=== PATIENT | female | born 1960 | race Caucasian/White ===

== ENCOUNTER → 2019-10-09 13:46 | Outpatient (CLI) | payer BC, SELFPAY ==
--- NOTE | ~2019-10-09 | MR_ITS ---
EXAMINATION: MR brain/brain stem wo/w con DATE: 10/09/2019 15:12 INDICATION: Multiple sclerosis. TECHNIQUE: Magnetic resonance imaging (MRI) of the brain and brainstem was performed without and with 10 mL MultiHance intravenous contrast. Sequences included sagittal and axial T1-weighted FLAIR, axia l T1-weighted FSE, axial diffusion-weighted FS EPI, sagittal T2-weighted FLAIR, axial T2*-weighted GR E, axial T2-weighted FLAIR Propeller, and axial T2-weighted Propeller. Postcontrast sequences include d axial, coronal, and sagittal T1-weighted FSE. Apparent diffusion coefficient (ADC) maps were create d. COMPARISON: Brain MRI 12/18/2017 FINDINGS: There are approximately 20 total lesions of increased T2-weighted signal intensity in the b rain. Of these lesions, multiple are periventricular, multiple are juxtacortical, and none are infrat entorial. None of the lesions enhance. There is no acute ischemic infarct or intracranial hemorrhage. The ventricles are normal in size. The paranasal sinuses are clear. There are likely changes of left ocular lens replacement surgery. The mastoid air cells are normal. IMPRESSION: 1. Unchanged number and distribution of cerebral white matter lesions, likely a combination of multip le sclerosis and some component of chronic small vessel ischemic disease. Reviewed, dictated and finalized at location A. IMPRESSION: 1. Unchanged number and distribution of cerebral white matter lesions, likely a combination of multiple sclerosis and some component of chronic small vessel i schemic disease.
--- NOTE | ~2019-10-09 | MR_ITS ---
EXAMINATION: MR cervical spine wo/w con DATE: 10/09/2019 15:01 INDICATION: Multiple sclerosis. TECHNIQUE: Magnetic resonance imaging (MRI) of the cervical spine was performed without and with 10 m L MultiHance intravenous contrast. Sequences included sagittal and axial T2-weighted FSE, sagittal ST IR FSE, and sagittal and axial T1-weighted FSE. Postcontrast sequences included sagittal and axial T1 -weighted FS FSE. COMPARISON: Cervical spine MRI 12/18/2017 FINDINGS: There is 2 mm retrolisthesis of C4 on C5 and C5 on C6. Vertebral body heights are normal. T here is moderately decreased disc height at C4-C5 and C5-C6. There are multiple ill-defined lesions o f increased T2-weighted signal intensity in the spinal cord from C2 to C7. None of the lesions enhanc e. The following disc levels are specifically discussed: C2-C3: The disc does not extend beyond the endplate margin. There is no uncovertebral joint osteoarth ritis. There is mild bilateral facet joint osteoarthritis. There is no neural foraminal stenosis. The re is no central canal stenosis. C3-C4: The disc does not extend beyond the endplate margin. There is mild bilateral uncovertebral katelyn nt osteoarthritis. There is severe bilateral facet joint osteoarthritis. There is no neural foraminal stenosis. There is no central canal stenosis. C4-C5: The disc is bulging. There is moderate right and severe left uncovertebral joint osteoarthriti s. There is moderate bilateral facet joint osteoarthritis. There is mild right and moderate left neur al foraminal stenosis. There is mild central canal stenosis. C5-C6: The disc is bulging. There is moderate right and severe left uncovertebral joint osteoarthriti s. There is moderate bilateral facet joint osteoarthritis. There is mild bilateral neural foraminal s tenosis. There is mild central canal stenosis. C6-C7: The disc does not extend beyond the endplate margin. There is no uncovertebral joint osteoarth ritis. There is mild right and severe left facet joint osteoarthritis. There is mild left neural fora indra stenosis. There is no central canal stenosis. C7-T1: The disc does not extend beyond the endplate margin. There is no uncovertebral joint osteoarth ritis. There is severe right and moderate left facet joint osteoarthritis. There is mild right neural foraminal stenosis. There is no central canal stenosis. IMPRESSION: 1. Unchanged distribution of lesions in the spinal cord, consistent with multiple sclerosis. 2. Stable moderate cervical spondylosis. Reviewed, dictated and finalized at location A. IMPRESSION: 1. Unchanged distribution of lesions in the spinal cord, consistent with multip le sclerosis. 2. Stable moderate cervical spondylosis.
[2019-10-09 14:11] LABS: Estimated Glomerular Filt Rate > 60
== END ==
PROVIDERS: PCP Student in an Organized Health Care Education/Training Program
DX: G35 Multiple sclerosis (principal); M47.892 Other spondylosis, cervical region
CPT/HCPCS: 36415; 70553; 72156; A9577

== ENCOUNTER → 2020-08-03 11:14 | Outpatient (CLI) | payer BC, SELFPAY ==
--- NOTE | ~2020-08-03 | MM_ITS ---
EXAMINATION: MM screening justin BI w teresa HISTORY: Screening mammogram TECHNIQUE: Craniocaudal and mediolateral oblique 3-D tomosynthesis images were obtained and synthetic 2-D images were generated. CAD analysis was submitted and interpreted. COMPARISON: 07/13/2019, 07/03/2018, bilateral digital screening mammogram examinations BREAST PARENCHYMAL COMPOSITION: There are scattered areas of fibroglandular density. FINDINGS: Scattered bilateral benign calcifications are noted. There is no evidence of suspicious mas s, calcification, or architectural distortion to suggest malignancy in either breast. There has been no suspicious interval change. IMPRESSION: 1. No mammographic evidence of malignancy. 2. Recommend routine screening mammography in one year. BI-RADS Category 1: Negative Reviewed, dictated and finalized at location A. BUILDER
== END ==
PROVIDERS: PCP Student in an Organized Health Care Education/Training Program; Visit Provider Obstetrics & Gynecology
DX: Z12.31 Encounter for screening mammogram for malignant neoplasm of breast (principal)
CPT/HCPCS: 77063; 77067

== ENCOUNTER → 2021-09-13 10:28 | Outpatient (CLI) | payer BC, SELFPAY ==
--- NOTE | ~2021-09-13 | MM_ITS ---
EXAMINATION: MM screening justin BI w teresa HISTORY: Screening mammogram, family history of breast cancer in her mother. TECHNIQUE: Craniocaudal and mediolateral oblique 3-D tomosynthesis images were obtained and synthetic 2-D images were generated. CAD analysis was submitted and interpreted. COMPARISON: 08/03/2020, 07/13/2019, 06/16/2018 BREAST PARENCHYMAL COMPOSITION: The breasts are almost entirely fatty. FINDINGS: Scattered benign-appearing calcifications are present. There is no evidence of suspicious m ass, calcification, or architectural distortion to suggest malignancy in either breast. There has bee n no suspicious interval change. IMPRESSION: 1. No mammographic evidence of malignancy. 2. Recommend routine screening mammography in one year. BI-RADS Category 2: Benign finding(s). Reviewed, dictated and finalized at location A. NIGHT STOCKER
== END ==
PROVIDERS: PCP Obstetrics & Gynecology; Visit Provider Obstetrics & Gynecology
DX: Z12.31 Encounter for screening mammogram for malignant neoplasm of breast (principal)
CPT/HCPCS: 77063; 77067

== ENCOUNTER → 2021-10-25 13:45 | Outpatient (CLI) | payer BC, SELFPAY ==
--- NOTE | ~2021-10-25 | MR_ITS ---
EXAMINATION: MR brain/brain stem wo/w con DATE: 10/25/2021 15:07 INDICATION: Multiple sclerosis. TECHNIQUE: Magnetic resonance imaging (MRI) of the brain and brainstem was performed without and with 10 mL MultiHance intravenous contrast. Sequences included sagittal and axial T1-weighted FLAIR, axia l T1-weighted FSE, axial diffusion-weighted FS EPI, sagittal T2-weighted FLAIR, axial T2*-weighted GR E, axial T2-weighted FLAIR Propeller, and axial T2-weighted Propeller. Postcontrast sequences include d axial, coronal, and sagittal T1-weighted FSE. Apparent diffusion coefficient (ADC) maps were create d. COMPARISON: Brain MRI 10/09/2019 FINDINGS: There are approximately 20 lesions of increased T2-weighted signal intensity in the brain. Of these lesions, multiple are periventricular, multiple are juxtacortical, and one involves the righ t posterior midbrain. None of the lesions enhance. There is no acute ischemic infarct or intracranial hemorrhage. The ventricles are normal in size. There are likely changes of left ocular lens replacem ent surgery. The mastoid air cells are normal. The paranasal sinuses are clear. IMPRESSION: 1. Unchanged number and distribution of brain lesions, likely a combination of multiple sclerosis and some component of chronic small vessel ischemic disease. Reviewed, dictated and finalized at location A.
--- NOTE | ~2021-10-25 | MR_ITS ---
EXAMINATION: MR cervical spine wo/w con DATE: 10/25/2021 15:10 INDICATION: Multiple sclerosis. TECHNIQUE: Magnetic resonance imaging (MRI) of the cervical spine was performed without and with 10 m L MultiHance intravenous contrast. Sequences included sagittal and axial T2-weighted FSE, sagittal T2 -weighted FS FSE, and sagittal and axial T1-weighted FSE. Postcontrast sequences included sagittal an d axial T1-weighted FS FSE. COMPARISON: Cervical spine MRI 10/09/2019 FINDINGS: There is 2 mm anterolisthesis of C3 on C4 and 2 mm retrolisthesis of C4 on C5 and C5 on C6. Vertebral body heights are normal. There is severely decreased disc height at C4-C5 and C5-C6. There are multiple ill-defined lesions of increased T2-weighted signal intensity in the cervical spinal co rd. None of the lesions enhance. The following disc levels are specifically discussed: C2-C3: There is a central protrusion. There is no uncovertebral joint osteoarthritis. There is severe right and mild left facet joint osteoarthritis. There is mild right neural foraminal stenosis. There is no central canal stenosis. C3-C4: The disc does not extend beyond the endplate margin. There is mild bilateral uncovertebral katelyn nt osteoarthritis. There is severe bilateral facet joint osteoarthritis. There is mild bilateral neur al foraminal stenosis. There is no central canal stenosis. C4-C5: The disc is bulging. There is severe bilateral uncovertebral joint osteoarthritis. There is mi ld right and severe left facet joint osteoarthritis. There is mild right and moderate left neural for aminal stenosis. There is mild central canal stenosis. C5-C6: The disc is bulging. There is severe bilateral uncovertebral joint osteoarthritis. There is mi ld bilateral facet joint osteoarthritis. There is mild bilateral neural foraminal stenosis. There is mild central canal stenosis. C6-C7: The disc does not extend beyond the endplate margin. There is no uncovertebral joint osteoarth ritis. There is severe left facet joint osteoarthritis. There is mild left neural foraminal stenosis. There is no central canal stenosis. C7-T1: The disc does not extend beyond the endplate margin. There is no uncovertebral joint osteoarth ritis. There is severe right and moderate left facet joint osteoarthritis. There is mild right neural foraminal stenosis. There is no central canal stenosis. IMPRESSION: 1. Stable lesions in the cervical spinal cord, consistent with multiple sclerosis. 2. Stable severe cervical spondylosis. Reviewed, dictated and finalized at location A. IMPRESSION: 1. Stable lesions in the cervical spinal cord, consistent with multiple scleros is. 2. Stable severe cervical spondylosis.
[2021-10-25 14:14] LABS: Estimated Glomerular Filt Rate > 60
== END ==
PROVIDERS: PCP Student in an Organized Health Care Education/Training Program; Visit Provider Psychiatry & Neurology Neurology
DX: G35 Multiple sclerosis (principal); M47.813 Spondylosis without myelopathy or radiculopathy, cervicothoracic region; M48.03 Spinal stenosis, cervicothoracic region
CPT/HCPCS: 70553; 72156; A9577

== ENCOUNTER → 2022-03-16 09:11 | Outpatient (CLI) | payer BC, SELFPAY ==
--- NOTE | ~2022-03-16 | CT_ITS ---
EXAMINATION: CT abdomen pelvis wo con DATE: 03/16/2022 09:37 INDICATION: Gluteal calcifications TECHNIQUE: Computed tomography (CT) of the abdomen and pelvis was performed without intravenous contr ast. Automated exposure control and iterative reconstruction technique were employed. Exam dose: 311 .58 mGy-cm total exam DLP. COMPARISON: 06/12/2019 right upper quadrant abdominal ultrasound examination FINDINGS: The lung bases are clear. Normal heart size. No pericardial or pleural effusion. The liver, gallbladder, bile ducts, spleen, pancreas, pancreatic duct, and adrenal glands and kidneys appear unremarkable on this limited noncontrast examination. Normal caliber of the abdominal aorta. No intraperitoneal or retroperitoneal or pelvic mass lesion or adenopathy or ascites. Pelvic structures and urinary bladder are unremarkable. Normal caliber of the abdominal aorta. No intraperitoneal or retroperitoneal or pelvic mass lesion or adenopathy or ascites. Normal appendix. Diverticulosis of the colon; no bowel obstruction, bowel wall thickening, pneumatosi s or intraperitoneal free air. Small fat-containing umbilical hernia. There are some calcifications within the subcutaneous adipose tissues along the proximal anterolatera l finalized bilaterally. No buttock calcifications or gluteal calcifications are noted. Severe degenerative disc disease at L5-S1. No suspicious osteolytic or osteoblastic lesions. IMPRESSION: Nonspecific subcutaneous fat calcifications at the proximal anterolateral 5 6 Diverticulosis of the colon; no evidence of diverticulitis Reviewed, dictated and finalized at Location A. Reviewed, dictated and finalized at location B. IMPRESSION: Nonspecific subcutaneous fat calcifications at the proximal bin lateral 5 6 Diverticulosis of the colon; no evidence of diverticulitis
== END ==
PROVIDERS: PCP Student in an Organized Health Care Education/Training Program; Visit Provider Student in an Organized Health Care Education/Training Program
DX: M61.9 Calcification and ossification of muscle, unspecified (principal); K57.30 Diverticulosis of large intestine without perforation or abscess without bleeding
CPT/HCPCS: 74176

== ENCOUNTER → 2022-09-24 12:36 | Outpatient (CLI) | payer BC, SELFPAY ==
--- NOTE | ~2022-09-24 | MM_ITS ---
EXAMINATION: MM screening justin BI w teresa HISTORY: Screening mammogram TECHNIQUE: Craniocaudal and mediolateral oblique 3-D tomosynthesis images were obtained and synthetic 2-D images were generated. CAD analysis was submitted and interpreted. COMPARISON: 09/13/2021, 08/03/2020, 07/13/2019 bilateral screening mammogram examinations BREAST PARENCHYMAL COMPOSITION: There are scattered areas of fibroglandular density. FINDINGS: There is no evidence of suspicious mass, calcification, or architectural distortion to sugg est malignancy in either breast. There has been no suspicious interval change. IMPRESSION: 1. No mammographic evidence of malignancy. 2. Recommend routine screening mammography in one year. BI-RADS Category 1: Negative Reviewed, dictated and finalized at location A.
== END ==
PROVIDERS: PCP Student in an Organized Health Care Education/Training Program; Visit Provider Obstetrics & Gynecology
DX: Z12.31 Encounter for screening mammogram for malignant neoplasm of breast (principal)
CPT/HCPCS: 77063; 77067

== ENCOUNTER 2023-10-28 08:31 | Outpatient (CLI) | payer BC, SELFPAY ==
--- NOTE | ~2023-10-28 | MR_ITS ---
EXAMINATION: MR cervical spine wo con DATE: 10/28/2023 09:20 INDICATION: Multiple sclerosis TECHNIQUE: Magnetic resonance imaging (MRI) of the cervical spine was performed without intravenous c ontrast. Sequences included sagittal T2-weighted FSE, sagittal T2-weighted FS FSE, sagittal T1-weight ed FSE, axial MERGE and axial T2-weighted FSE. COMPARISON: 10/25/2021 FINDINGS: Unchanged 2 mm anterolisthesis C3 on C4 and 2 mm retrolisthesis of C4-C5 and C5 on C6. Vertebral bod y heights are normal. Bone marrow signal intensity is normal. Severe disc height loss at C4-C5 and C 5-C6. Mild disc height loss at C3-C4. Again seen but less conspicuous are few scattered ill-defined T 2 hyperintense cord lesions at this includes at the left anterior and right posterior aspects at the level of C3-C4, anteriorly on the left from C4 through C5 C6 and on the left posterior aspect at C6-C 7. No new cord lesions identified. The following disc levels are specifically discussed: C2-C3: Small central disc protrusion. There is no uncovertebral joint osteoarthritis. There is mild l eft and severe right facet joint osteoarthritis. There is mild right neural foraminal stenosis. There is no central canal stenosis. C3-C4: The disc does not extend beyond the more posterior C4 endplate margin. There is mild bilateral uncovertebral joint osteoarthritis. There is severe bilateral facet joint osteoarthritis. There is m ild bilateral neural foraminal stenosis. There is no central canal stenosis. C4-C5: Disc is bulging. There is severe bilateral uncovertebral joint osteoarthritis. There is severe left and mild right facet joint osteoarthritis. There is moderate left and mild right neural foramin al stenosis. There is mild central canal stenosis. C5-C6: Disc is bulging. There is severe bilateral uncovertebral joint osteoarthritis. There is mild b ilateral facet joint osteoarthritis. There is mild right and mild to moderate left neural foraminal s tenosis. There is mild central canal stenosis. C6-C7: The disc does not extend beyond the endplate margin. There is no uncovertebral joint osteoarth ritis. There is mild right and severe left facet joint osteoarthritis. There is mild left neural fora indra stenosis. There is no central canal stenosis. C7-T1: The disc does not extend beyond the endplate margin. There is no uncovertebral joint osteoarth ritis. There is moderate left and severe right facet joint osteoarthritis. There is mild right neural foraminal stenosis. There is no central canal stenosis. IMPRESSION: 1. Several T2 hyperintense lesions in the mid cervical cord unchanged extent but with slightly less c onspicuous increased T2 signal consistent with multiple sclerosis. No new cord lesions identified. 2. No significant change in severe cervical spondylosis. Reviewed, dictated and finalized at location A. IMPRESSION: 1. Several T2 hyperintense lesions in the mid cervical cord unchanged extent bu t with slightly less conspicuous increased T2 signal consistent with multiple s clerosis. No new cord lesions identified. 2. No significant change in severe cervical spondylosis.
--- NOTE | ~2023-10-28 | MR_ITS ---
EXAMINATION: MR brain/brain stem wo con DATE: 10/28/2023 09:10 INDICATION: Multiple sclerosis TECHNIQUE: Magnetic resonance imaging (MRI) of the brain and brainstem was performed without intraven ous contrast. Sequences included sagittal and axial T1-weighted SE, axial diffusion-weighted FS SE, a xial T2*-weighted GRE, axial T2-weighted FLAIR, and axial T2-weighted FSE. Apparent diffusion coeffic ient (ADC) maps were created. COMPARISON: Brain MR dated 10/25/2021 FINDINGS: No interval change in approximately 20 supratentorially T2 hyperintense lesions relatively with relat ively equivalent distribution on both the left and right as well as between periventricular and juxta cortical lesions. No new lesions identified. No evident infratentorial or mid brain lesions. There ar e no areas of restricted diffusion to suggest acute infarction. No intracranial hemorrhage or abnorma l intracranial mass lesion. There are no intraparenchymal signal abnormalities seen on the other puls e sequences. The ventricles are symmetric and normal in size. There are no abnormal extra-axial fluid collections. Flow voids are seen in the cerebral arteries on the T2-weighted sequences consistent wi th their expected patency. Changes of left intraocular lens replacement. Visualized orbits and soft tissues are unremarkable. IMPRESSION: 1. No interval change in number or distribution of multiple small T2 hyperintense supratentorial brai n lesions consistent with multiple sclerosis and/or chronic small vessel ischemic disease. Reviewed, dictated and finalized at location A. IMPRESSION: 1. No interval change in number or distribution of multiple small T2 hyperinten se supratentorial brain lesions consistent with multiple sclerosis and/or chron ic small vessel ischemic disease.
== END 2023-10-28 08:32 ==
LOC: MICIMG 08:32
PROVIDERS: PCP Student in an Organized Health Care Education/Training Program; Visit Provider Psychiatry & Neurology Neurology
DX: G35 Multiple sclerosis (principal)
CPT/HCPCS: 70551; 72141

== ENCOUNTER 2024-02-17 11:06 | Outpatient (CLI) | payer BC, SELFPAY ==
--- NOTE | ~2024-02-17 | MM_ITS ---
EXAMINATION: MM screening justin BI w teresa HISTORY: Screening TECHNIQUE: Craniocaudal and mediolateral oblique 3-D tomosynthesis images were obtained and synthetic 2-D images were generated. CAD analysis was submitted and interpreted. COMPARISON: Comparison to multiple prior studies sequentially, with oldest reviewed study dated 04/14. BREAST PARENCHYMAL COMPOSITION: Not dense: There are scattered areas of fibroglandular density. FINDINGS: There is no evidence of suspicious mass, calcification, or architectural distortion to sugg est malignancy in either breast. There has been no suspicious interval change. IMPRESSION: 1. No mammographic evidence of malignancy. 2. Recommend routine screening mammography in one year. BI-RADS Category 1: Negative Reviewed, dictated and finalized at location B.
== END 2024-02-17 11:07 ==
LOC: MICIMG 11:07
PROVIDERS: PCP Student in an Organized Health Care Education/Training Program; Visit Provider Obstetrics & Gynecology
DX: Z12.31 Encounter for screening mammogram for malignant neoplasm of breast (principal)
CPT/HCPCS: 77063; 77067

== ENCOUNTER 2025-05-03 07:51 | Outpatient (CLI) | payer BC, SELFPAY ==
--- NOTE | ~2025-05-03 | DEXA_ITS ---
Bone Density Report Name: BERNIE WEBB Age: 64 Sex: Female Ethnicity: White Date of : 1960 Indication: postmenopausal; screening for osteoporosis; parental hip fracture; hysterectomy; Referring Provider: Marcellus, Joaquim Study: Bone densitometry was performed. Exam Date: May 03, 2025 Accession number: [id number] Bone Density: Region BMD T-score Z-score Classification AP Spine(L1-L4) 0.960 -0.8 0.9 Normal Femoral Neck (Left) 0.753 -0.9 0.6 Normal Total Hip (Left) 0.861 -0.7 0.5 Normal Femoral Neck (Right) 0.770 -0.7 0.7 Normal Total Hip (Right) 0.879 -0.5 0.6 Normal Total Hip Mean 0.870 -0.6 0.6 Normal World Health Organization criteria for BMD impression classify patients as: Normal (T-score at or above -1.0), Osteopenia (T-score between -1.0 and -2.5), or Osteoporosis (T-score at or below -2.5). 10-year Fracture Risk: FRAX not reported because: All T-scores for Spine Total, Hip Total, Femoral Neck at or above -1.0 Clinical Information Provided by Patient: Parent has had a hip fracture Has used the following medications: Vitamin D, Calcium Has the following medical conditions: Hysterectomy Patient maximum height was 62 Menopause Age: 53 No regular weight bearing exercise Drinks caffeinated beverages Onset of menses at age 11 Number of children 1 Impression: The patient has normal bone mass. The patient has risk factors, including: parental hip fracture. Discussion: BONE DENSITY IS ABOVE THE MINIMUM DESIRABLE LEVEL AT ALL SKELETAL SITES TESTED. This patient?s bone mineral density is above the minimum desirable level (T-score -1.0 or better) at all sites measured. The patient should follow a healthful lifestyle (good nutrition with adequate calcium and vitamin D, and appropriate weight-bearing exercise). Follow-Up: Consider repeating this study in 5 years or sooner if there is some new clinical indication. Reported by: KARLIE on 05/03/2025 8:12:00 AM. Reviewed, dictated and finalized at location A.
== END 2025-05-03 07:52 | disposition home or self-care (01) ==
LOC: MICIMG 07:51
PROVIDERS: PCP Student in an Organized Health Care Education/Training Program; Visit Provider Student in an Organized Health Care Education/Training Program
DX: Z78.0 Asymptomatic menopausal state (principal)
CPT/HCPCS: 77080

== ENCOUNTER 2025-05-26 09:15 | Outpatient (CLI) | payer BC, SELFPAY ==
--- NOTE | ~2025-05-26 | MM_ITS ---
EXAMINATION: MM screening justin BI w teresa HISTORY: Screening TECHNIQUE: Craniocaudal and mediolateral oblique 3-D tomosynthesis images were obtained and synthetic 2-D images were generated. CAD analysis was submitted and interpreted. COMPARISON: Comparison to multiple prior studies sequentially, with oldest reviewed study dated 06/16/2018. BREAST PARENCHYMAL COMPOSITION: Not Dense: The breasts are almost entirely fatty. FINDINGS: There is no evidence of suspicious mass, calcification, or architectural distortion to suggest malignancy in either breast. There has been no suspicious interval change. IMPRESSION: 1. No mammographic evidence of malignancy. 2. Recommend routine screening mammography in one year. BI-RADS Category 1: Negative Reviewed, dictated and finalized at location B. OR JAVA UI DEVELOPER
== END 2025-05-26 09:16 | disposition home or self-care (01) ==
LOC: MICIMG 09:16
PROVIDERS: PCP Student in an Organized Health Care Education/Training Program; Visit Provider Obstetrics & Gynecology
DX: Z12.31 Encounter for screening mammogram for malignant neoplasm of breast (principal)
CPT/HCPCS: 77063; 77067